=== PATIENT | female | born 2000 | race Caucasian/White ===

== ENCOUNTER 2022-09-05 10:20 | Emergency (ER) | payer OTHER ==
--- OUTSIDE RECORDS SUMMARY | 2022-09-05 10:23 | XMS REPORT | Continuity of Care Document ---
:2000 Author Organization [facility] t Address [address] [place] [address] Care Team Providers Name Role Phone ALBERT MANCIA Attending Clinician Unavailable LESLY PLATA Attending Clinician Unavailable Problems This patient has no known problems. Allergies, Adverse Reactions, Alerts This patient has no known allergies or adverse reactions. Medications This patient has no known medications. Procedures This patient has no known procedures. Encounters Start End Encounter Admission Attending Care Care Encounter Source Date/Time Date/Time Type Type Clinicians Facility Department ID 2022-05-31 2022-05-31 Emergency ER RODOLFO MANCIA [facility] [id number] 17:19:00 19:10:00 ALBERT [id number] [facility] 2022-05-31 2022-05-31 emergency [id number] 17:19:00 19:10:00 [id number] [phone] [id number] 5eb 2021-02-21 2021-02-21 Emergency ER , [facility] [id number] 19:04[facility]00 22:21:00 [id number] Results This patient has no known results.
[2022-09-05 11:31] LABS: SARS-COV-2 RT PCR NEGATIVE (NEGATIVE)
--- NOTE | 2022-09-05 11:53 | EDPHYS ---
Physician Documentation [facility] Name: Mandy Patel Age: 22 yrs Sex: Female : 2000 Arrival Date: 09/05/2022 Time: 10:21 Bed 9 Private MD: ED Physician Jamal Xiong HPI: 09/05 10:34 This 22 yrs old Female presents to ER via Ambulatory with complaints of Cold Symptoms, jmm Flu Symptoms. 10:34 The patient or guardian reports cough. Onset: The symptoms/episode began/occurred jmm gradually, 4 day(s) ago. Modifying factors: The symptoms are alleviated by nothing. the symptoms are aggravated by nothing. Is a 22-year-old female with no chronic medical conditions and presents emerged department with complaints of cough, sore throat beginning approximately 4 days ago. Denies vomiting but states having some nausea. Denies diarrhea. Denies abdominal pain.. Historical: - Allergies: 10:30 PENICILLINS; aa5 - PMHx: 10:30 None; aa5 - PSHx: 10:30 None; aa5 - Immunization history:: Adult Immunizations unknown. - Social history:: Smoking status: Reported history of juuling and/or vaping. ROS: 10:34 Constitutional: Positive for body aches, chills. jmm 10:34 ENT: Positive for sore throat. 10:34 Respiratory: Positive for cough. 10:34 All other systems are negative. Exam: 10:34 Constitutional: This is a well developed, well nourished patient who is awake, alert, jmm and in no acute distress. Head/Face: atraumatic. Eyes: EOMI, no conjunctival erythema appreciated 10:34 Neck: Trachea midline, Supple Chest/axilla: Normal chest wall appearance and motion. Cardiovascular: Regular rate and rhythm. No edema appreciated Respiratory: Normal respirations, no respiratory distress appreciated Abdomen/GI: Non distended Back: Normal ROM Skin: General appearance color normal MS/ Extremity: Moves all extremities, no obvious deformities appreciated, no edema noted to the lower extremities Neuro: Awake and alert Psych: Behavior is normal, Mood is normal, Patient is cooperative and pleasant 10:34 ENT: Posterior pharynx: erythema, that is moderate. Vital Signs: 10:27 BP 143 / 99; Pulse 99; Resp 18 S; Temp 97.5(TE); Pulse Ox 100% on R/A; Weight 63.5 kg aa5 (R); MDM: 10:34 Patient medically screened. [facility] 11:51 Data reviewed: vital signs, nurses notes, lab test result(s). Counseling: I had a jmm detailed discussion with the patient and/or guardian regarding: the historical points, exam findings, and any diagnostic results supporting the discharge/admit diagnosis, lab results, the need for outpatient follow up, to return to the emergency department if symptoms worsen or persist or if there are any questions or concerns that arise at home. ED course: Patient is alert nontoxic in appearance in the ED. Patient advised follow-up PCP otherwise given strict return precautions. Patient understood agrees plan of care. 09/05 10:34 Order name: COVID-19/FLU A+B; Complete Time: 11:36 [facility] 09/05 10:34 Order name: Strep; Complete Time: 11:20 [facility] 09/05 11:24 Order name: Throat Culture EDMS Administered Medications: No medications were administered Disposition: 13:32 I reviewed the patient's care provided by the Advanced Practice Provider and agree with jrYovany the diagnosis and treatment plan. Disposition Summary: 09/05/22 11:52 Discharge Ordered Location: Home [facility] Condition: Stable [facility] Diagnosis - Acute pharyngitis, unspecified [facility] Followup: [facility] - With: Private Physician - When: 2 - 3 days - Reason: Recheck today's complaints, Continuance of care, Re-evaluation by your physician Discharge Instructions: - Discharge Summary Sheet [facility] - Pharyngitis [facility] Forms: - Medication Reconciliation Form [facility] - Thank You Letter [facility] - Antibiotic Education [facility] - Prescription Opioid Use [facility] - Work release form iw Prescriptions: - promethazine-DM - take 10 milliliter by ORAL route every 4-6 hours As needed; 200 milliliter; [facility] Refills: 0, Product Selection Permitted - Zithromax Z-Jeremy 250 mg Oral Tablet - take 1 tablet by ORAL route as directed for 5 days Day 1 - take two (2) tablets [facility] one time. Day 2, 3, 4 , 5 take one (1) tablet once daily.; 6 tablet; Refills: 0, Product Selection Permitted Signatures: Dispatcher [employer] EDMS Bird Anthony PA PA jmm Calderon, Beverly, RN RN aa5 Jamal Xiong MD MD [id number] Corrections: (The following items were deleted from the chart) 10:30 10:30 Allergies: No Known Allergies; aa5 aa5
--- NOTE | 2022-09-05 11:53 | ER ---
Nurse's Notes [facility] Name: Mandy Patel Age: 22 yrs Sex: Female : 2000 Arrival Date: 09/05/2022 Time: 10:21 Bed 9 Private MD: Diagnosis: Acute pharyngitis, unspecified Presentation: 09/05 10:27 Chief complaint: Patient states: cough and congestion since Friday. Denies fever, aa5 reports sore throat. Coronavirus screen: congestion, cough unrelated to allergies. Ebola Screen: Patient denies travel to an Ebola-affected area in the 21 days before illness onset. Initial Sepsis Screen: Does the patient meet any 2 criteria? No. Patient's initial sepsis screen is negative. Does the patient have a suspected source of infection? No. Patient's initial sepsis screen is negative. Risk Assessment: Do you want to hurt yourself or someone else? Patient reports no desire to harm self or others. Onset of symptoms was August 2022. 10:27 Acuity: CINDY 4 aa5 10:27 Method Of Arrival: Ambulatory aa5 Historical: - Allergies: 10:30 PENICILLINS; aa5 - PMHx: 10:30 None; aa5 - PSHx: 10:30 None; aa5 - Immunization history:: Adult Immunizations unknown. - Social history:: Smoking status: Reported history of juuling and/or vaping. Vital Signs: 10:27 BP 143 / 99; Pulse 99; Resp 18 S; Temp 97.5(TE); Pulse Ox 100% on R/A; Weight 63.5 kg aa5 (R); ED Course: 10:21 Patient arrived in ED. am2 10:22 Bird Anthony PA is PHCP. [facility] 10:22 Jamal Xiong MD is Attending Physician. jm 10:27 Arm band placed on. aa5 10:29 Triage completed. aa5 12:05 Linda Winslow, GINNY is Primary Nurse. iw Administered Medications: No medications were administered Outcome: 11:52 Discharge ordered by . jmm 12:07 Patient left the ED. iw Signatures: Bird Anthony PA PA jmm Williams, Irene, RN RN iw Beverly Nye RN RN aa5 Carmelita Funez am2 Corrections: (The following items were deleted from the chart) 10:30 10:27 BP 143 / 99; Pulse 99bpm; Resp 18bpm; Spontaneous; Pulse Ox 100% RA; Temp 97.5F aa5 Temporal; aa5 10:30 10:30 Allergies: No Known Allergies; aa5 aa5
[2022-09-05 12:27] VITALS: BP 143/99; TEMP 97.5; O2SAT 100
== END 2022-09-05 12:07 | disposition home or self-care (01) ==
LOC: ER 10:20
DX: J02.9 Acute pharyngitis, unspecified (principal); Z20.822 Contact with and (suspected) exposure to COVID-19; Z88.0 Allergy status to penicillin
CPT/HCPCS: 87070; 87081; 0240U; 99281

== ENCOUNTER 2022-10-04 17:03 | Emergency (ER) | payer OTHER ==
--- OUTSIDE RECORDS SUMMARY | 2022-10-04 17:07 | XMS REPORT | Continuity of Care Document ---
:2000 Author Organization [facility] t Address [address] [place] [address] Care Team Providers Name Role Phone ALBERT [...] ID 2022-05-31 2022-05-31 Emergency ER RODOLFO MANCIA [facility] [id number] 17:19:00 19:10:00 ALBERT [id number] [facility] 2022-05-31 2022-05-31 emergency [id number] 17:19:00 19:10:00 [phone] [id number] 5eb 2021-02-21 2021-02-21 Emergency ER , [facility] [id number] 19:04:00 22:21:00 [id number] [facility] Results This patient has no known results.
--- NOTE | 2022-10-04 20:47 | RAD REPORT ---
EXAM DESCRIPTION: US - Extremity Nonvascular Limited - 10/04/2022 8:37 pm CLINICAL HISTORY: Right chest wall pain COMPARISON: None FINDINGS: Sonographic evaluation of the upper lateral right chest wall does not demonstrate a cystic or solid mass. An abscess is not visualized IMPRESSION: Unremarkable ultrasound. If a worrisome mass is suspected clinically then further evalua tion with MRI could be obtained
--- NOTE | 2022-10-04 21:35 | EDPHYS ---
Physician Documentation [facility] Name: Mandy Patel Age: 22 yrs Sex: Female : 2000 Arrival Date: 10/04/2022 Time: 17:06 Bed 19 Private MD: ED Physician Babatunde Cary HPI: 10/04 19:57 This 22 yrs old Female presents to ER via Ambulatory with complaints of Under arm pain. kb 20:00 The patient or guardian reports chest pain that is located primarily in the anterior kb chest wall, right. The pain does not radiate. Associated signs and symptoms: The patient has no apparent associated signs or symptoms. The chest pain is described as sharp. Duration: The patient or guardian reports a single episode. Modifying factors: The symptoms are alleviated by nothing. the symptoms are aggravated by movement, palpation of area. Severity of pain: At its worst the pain was moderate in the emergency department the pain is unchanged. The patient has not experienced similar symptoms in the past. The patient has not recently seen a physician. Historical: - Allergies: 17:14 PENICILLINS; hb - Home Meds: 17:14 None [Active]; hb - PMHx: 17:14 None; hb - PSHx: 17:14 None; hb - Immunization history:: Adult Immunizations up to date. - Social history:: Smoking status: Reported history of juuling and/or vaping. ROS: 19:57 Constitutional: Negative for fever, chills, and weight loss. kb 19:57 Cardiovascular: Positive for chest pain, of the anterior aspect of right upper chest. 19:57 All other systems are negative. Exam: 19:57 Constitutional: This is a well developed, well nourished patient who is awake, alert, kb and in no acute distress. Head/Face: Normocephalic, atraumatic. ENT: Moist Mucous membranes Cardiovascular: Regular rate and rhythm with a normal S1 and S2. No gallops, murmurs, or rubs. No pulse deficits. Respiratory: Respirations even and unlabored. No increased work of breathing. Talking in full sentences Abdomen/GI: Soft, non-tender. No distention Skin: Warm, dry with normal turgor. Normal color. MS/ Extremity: Pulses equal, no cyanosis. Neurovascular intact. Full, normal range of motion. Neuro: Awake and alert, GCS 15, oriented to person, place, time, and situation. Moves all extremities. Normal gait. 19:57 Chest/axilla: Inspection: normal, Palpation: tenderness, that is moderate, of the anterior aspect of right upper chest, that totally reproduces the patient's complaints, Axilla: are normal. Vital Signs: 17:13 BP 137 / 89; Pulse 77; Resp 18; Temp 98.1; Pulse Ox 100% ; Weight 68.49 kg; Height 5 hb ft. 4 in. (162.56 cm); Pain 1/10; 19:17 BP 125 / 94; Pulse 88; Resp 18; Pulse Ox 100% ; mb9 20:39 BP 120 / 76; Pulse 85; Resp 16; Pulse Ox 99% on R/A; mb9 21:40 BP 121 / 82; Pulse 76; Resp 14; Pulse Ox 100% ; mb9 17:13 Body Mass Index 25.92 (68.49 kg, 162.56 cm) hb MDM: 17:08 Patient medically screened. kb 19:57 Differential diagnosis: Strain, abscess, contusion. Data reviewed: vital signs, nurses kb notes. Transition of care: After a detail discussion of the patient's case, care is transferred to Babatunde ELENA. ED course: Patient is a 22-year-old female with no medical history who presents for pain and tenderness to right upper and lateral that started yesterday. Chest denies any injury or trauma. Reports pain increases with movement and palpation. On exam moderate tenderness noted to right upper chest wall that is totally reproducible. No discoloration or warmth noted to skin. Will obtain ultrasound to rule out abscess. Case discussed with KASSY Lopez who will take over care of patient.. 10/04 19:16 Order name: US [place] Shannandelfino Limited; Complete Time: 21:03 kb 10/04 21:03 Interpretation: Report reviewed. cp Administered Medications: No medications were administered Disposition Summary: 10/04/22 21:35 Discharge Ordered Location: Home cp Problem: new cp Symptoms: have improved cp Condition: Stable cp Diagnosis - Chest pain, unspecified - right lateral chest wall cp Followup: cp - With: Private Physician - When: 2 - 3 days - Reason: Recheck today's complaints Discharge Instructions: - Discharge Summary Sheet cp - Chest Wall Pain cp Forms: - Medication Reconciliation Form cp - Thank You Letter cp - Antibiotic Education cp - Prescription Opioid Use cp Prescriptions: - Ibuprofen 800 mg Oral Tablet - take 1 tablet by ORAL route every 8 hours As needed take with food; 30 tablet; cp Refills: 0, Product Selection Permitted Signatures: Dispatcher [employer] Caitie Tenorio FNP-C FNP-Ckb Page, Corey, PA PA cp Janet Miller, RN RN
--- NOTE | 2022-10-04 21:35 | ER ---
Nurse's Notes [facility] Name: Mandy Patel Age: 22 yrs Sex: Female : 2000 Arrival Date: 10/04/2022 Time: 17:06 Bed 19 Private MD: Diagnosis: Chest pain, unspecified-right lateral chest wall Presentation: 10/04 17:13 Chief complaint: Right sided chest wall pain x 2 days. Coronavirus screen: At this hb time, the client does not indicate any symptoms associated with coronavirus-19. Ebola Screen: No symptoms or risks identified at this time. Initial Sepsis Screen: Does the patient meet any 2 criteria? No. Patient's initial sepsis screen is negative. Does the patient have a suspected source of infection? No. Patient's initial sepsis screen is negative. Risk Assessment: Do you want to hurt yourself or someone else? Patient reports no desire to harm self or others. Onset of symptoms was October 03, 2022. 17:13 Method Of Arrival: Ambulatory hb 17:13 Acuity: CINDY 4 hb Historical: - Allergies: 17:14 PENICILLINS; hb - Home Meds: 17:14 None [Active]; hb - PMHx: 17:14 None; hb - PSHx: 17:14 None; hb - Immunization history:: Adult Immunizations up to date. - Social history:: Smoking status: Reported history of juuling and/or vaping. Screenin:11 [facility] ED Fall Risk Assessment (Adult) History of falling in the last 3 months, mb9 including since admission No falls in past 3 months (0 pts) Confusion or Disorientation No (0 pts) Intoxicated or Sedated No (0 pts) Impaired Gait No (0 pts) Mobility Assist Device Used No (0 pt) Altered Elimination No (0 pt) Score/Fall Risk Level 0 - 2 = Low Risk Oriented to surroundings, Maintained a safe environment, Educated pt \T\ family on fall prevention, incl call for assistance when getting out of bed. Abuse screen: Denies threats or abuse. Nutritional screening: No deficits noted. Tuberculosis screening: No symptoms or risk factors identified. Assessment: 19:11 Reassessment: pt brought back to ER room. mb9 19:16 General: Appears in no apparent distress. Behavior is calm, cooperative, appropriate mb9 for age. Pain: Complains of pain in right arm Pain does not radiate. Pain currently is 5 out of 10 on a pain scale. Quality of pain is described as sharp, shooting, Pain began 1 day ago. Is intermittent, Aggravated by repositioning, weight bearing. Neuro: Ackerman Agitation-Sedation Scale (RASS): 0 - Alert and Calm Level of Consciousness is awake, alert, obeys commands, Oriented to person, place, time, situation, Appropriate for age. Cardiovascular: Capillary refill < 3 seconds is brisk Patient's skin is warm and dry. Respiratory: Airway is patent Respiratory effort is even, unlabored, Respiratory pattern is regular, symmetrical. GI: No signs and/or symptoms were reported involving the gastrointestinal system. : No signs and/or symptoms were reported regarding the genitourinary system. EENT: No signs and/or symptoms were reported regarding the EENT system. Derm: Skin is pink, warm \T\ dry. Musculoskeletal: Range of motion: limited in right shoulder. 21:09 Reassessment: No changes from previously documented assessment. Patient and/or family mb9 updated on plan of care and expected duration. Pain level reassessed. Patient is alert, oriented x 3, equal unlabored respirations, skin warm/dry/pink. Vital Signs: 17:13 BP 137 / 89; Pulse 77; Resp 18; Temp 98.1; Pulse Ox 100% ; Weight 68.49 kg; Height 5 hb ft. 4 in. (162.56 cm); Pain 1/10; 19:17 BP 125 / 94; Pulse 88; Resp 18; Pulse Ox 100% ; mb9 20:39 BP 120 / 76; Pulse 85; Resp 16; Pulse Ox 99% on R/A; mb9 21:40 BP 121 / 82; Pulse 76; Resp 14; Pulse Ox 100% ; mb9 17:13 Body Mass Index 25.92 (68.49 kg, 162.56 cm) hb ED Course: 17:06 Patient arrived in ED. mr 17:08 Caitie Boyle FNP-C is [facility]. kb 17:08 Babatunde Cary MD is Attending Physician. kb 17:14 Triage completed. hb 17:15 Arm band placed on. hb 19:11 Scarlett Gracia RN is Primary Nurse. mb9 19:12 Bed in low position. Call light in reach. Side rails up X 1. Client placed on mb9 continuous cardiac and pulse oximetry monitoring. NIBP monitoring applied. 19:16 No provider procedures requiring assistance completed. mb9 19:50 PHCP role handed off by Caitie Boyle FNP-C cp 19:50 Babatunde Krause PA is PHCP. cp 20:45 Extrmty Nonvasular Limited In Process Unspecified. EDMS 21:41 Patient did not have IV access during this emergency room visit. mb9 Administered Medications: No medications were administered Medication: 19:12 VIS not applicable for this client. mb9 Outcome: 21:35 Discharge ordered by MD. cp 21:40 Discharged to home ambulatory. mb9 21:40 Condition: stable 21:40 Discharge instructions given to patient, Instructed on discharge instructions, follow up and referral plans. Demonstrated understanding of instructions, follow-up care, medications, Prescriptions given X 1. 21:41 Patient left the ED. mb9 Signatures: Dispatcher [employer] EDAK Caitie Boyle FNP-C FNP-Scarlett Lemus Corey, PA PA cp Baxter, Heather, RN RN Scarlett Gracia, RN RN mb9
[2022-10-04 22:21] VITALS: TEMP 98.1
[2022-10-04 22:24] VITALS: BP 121/82; O2SAT 100
== END 2022-10-04 21:41 | disposition home or self-care (01) ==
LOC: ER 17:03
DX: R07.89 Other chest pain (principal); Z88.0 Allergy status to penicillin
CPT/HCPCS: 76882; 99283

== ENCOUNTER 2023-03-24 20:46 | Emergency (ER) | payer OTHER ==
--- OUTSIDE RECORDS SUMMARY | 2023-03-24 20:49 | XMS REPORT | Continuity of Care Document ---
:2000 Author Organization [facility] t Address [address] [facility] [address] [place] [address] Support Name Relationship Address Phone OTHER, ENTER NAME IN Primary Care Physician Unavailable Unav ailable NOTES MD LESLY PLATA Emergency Provider [facility] [place] [address] СВЕТЛАНА CURRY Unavailable [id number] [facility] [place] [address] MD ALBERT MANCIA Emergency Provider [address] [place] [address] [phone] [place] [address] CHRISTOPHER CRUZ Family Member [id number] [place] [address] GIORGI SEN Family Member [id number] [place] [address] Care Team Providers Name Role Phone ALBERT [...] ID 2022-05-31 2022-05-31 Emergency ER RODOLFO MANCIA [facility] [id number] 17:19:00 19:10:00 ALBERT [id number] [facility] 2022-05-31 2022-05-31 emergency [id number] 17:19:00 19:10:00 [phone] [id number] 5eb 2021-02-21 2021-02-21 Emergency ER , [facility] [id number] 19:04:00 22:21:00 [id number] [facility] Results This patient has no known results.
--- NOTE | 2023-03-24 22:08 | RAD REPORT ---
EXAM DESCRIPTION: RAD - Chest Single View - 03/24/2023 10:01 pm CLINICAL HISTORY: Chest pain;Dyspnea Chest pain. COMPARISON: <Comparisons> FINDINGS: Portable technique limits examination quality. The lungs are grossly clear. The heart is normal in size. No displaced fractures. IMPRESSION: No acute intrathoracic process suspected.
--- NOTE | 2023-03-24 22:19 | EDPHYS ---
Physician Documentation [facility] Name: Mandy Patel Age: 22 yrs Sex: Female : 2000 Arrival Date: 03/24/2023 Time: 20:46 Bed 11 Private MD: ED Physician Rick Rush HPI: 03/25 00:08 This 22 yrs old Female presents to ER via Ambulatory with complaints of Chest kb Congestion, Shortness Of Breath. 00:08 The patient or guardian reports cough, that is intermittent, described as mild, kb difficulty breathing. Onset: The symptoms/episode began/occurred yesterday. Severity of symptoms: At their worst the symptoms were mild, moderate, in the emergency department the symptoms are unchanged. Modifying factors: The symptoms are alleviated by nothing, the symptoms are aggravated by nothing. Associated signs and symptoms: Pertinent positives: rhinorrhea, Pertinent negatives: chest pain, diarrhea, ear ache, fever, nausea, sore throat, vomiting. The patient has not experienced similar symptoms in the past. The patient has not recently seen a physician. R&D LAB TECHNICIAN: 03/24 21:59 LMP N/A - mb9 Historical: - Allergies: 22:25 PENICILLINS; mb9 - Home Meds: 22:25 None [Active]; mb9 - PMHx: 22:25 None; mb9 - PSHx: 22:25 None; mb9 - Immunization history:: Client reports receiving the 2nd dose of the Covid vaccine. - Social history:: Smoking status: Reported history of juuling and/or vaping. ROS: 03/25 00:07 Constitutional: Negative for fever, chills, and weight loss. kb ENT: Positive for rhinorrhea, sinus congestion. Respiratory: Positive for cough, shortness of breath. All other systems are negative. Exam: 00:07 Constitutional: This is a well developed, well nourished patient who is awake, alert, kb and in no acute distress. Head/Face: Normocephalic, atraumatic. ENT: Moist Mucous membranes Cardiovascular: Regular rate and rhythm with a normal S1 and S2. No gallops, murmurs, or rubs. No pulse deficits. Respiratory: Respirations even and unlabored. No increased work of breathing. Talking in full sentences Skin: Warm, dry with normal turgor. Normal color. MS/ Extremity: Pulses equal, no cyanosis. Neurovascular intact. Full, normal range of motion. Neuro: Awake and alert, GCS 15, oriented to person, place, time, and situation. Moves all extremities. Normal gait. Vital Signs: 03/24 21:25 BP 135 / 96; Pulse 87; Resp 24; Temp 98.6; Pulse Ox 100% ; Weight 68.04 kg; Height 5 vc1 ft. 4 in. ; Pain 3/10; 22:24 BP 118 / 75; Pulse 74; Resp 18; Pulse Ox 100% on R/A; mb9 21:25 Body Mass Index 25.75 (68.04 kg, 162.56 cm) vc1 21:25 Pain Scale: Adult vc1 MDM: 21:03 Patient medically screened. kb 03/25 00:07 Differential diagnosis: COVID, flu, URI, bronchitis, pneumonia. Data reviewed: vital kb signs, nurses notes. Counseling: I had a detailed discussion with the patient and/or guardian regarding: the historical points, exam findings, and any diagnostic results supporting the discharge/admit diagnosis, lab results, radiology results, the need for outpatient follow up, a family practitioner, to return to the emergency department if symptoms worsen or persist or if there are any questions or concerns that arise at home. 03/24 21:23 Order name: Flu; Complete Time: 22:03 kb 03/24 21:23 Order name: SARS-COV-2 RT PCR; Complete Time: 22:17 kb 03/24 21:23 Order name: Chest Single View XRAY; Complete Time: 22:10 kb Administered Medications: No medications were administered Disposition: 00:43 Co-signature as Attending Physician, Rick Rush MD I agree with the assessment sp4 and plan of care. I reviewed the patient's care provided by the Advanced Practice Provider and agree with the diagnosis and treatment plan. Disposition Summary: 03/24/23 22:18 Discharge Ordered Location: Home kb Condition: Stable kb Diagnosis - Acute upper respiratory infection, unspecified kb Followup: kb - With: Emergency Department - When: As needed - Reason: Worsening of condition Followup: kb - With: Private Physician - When: 2 - 3 days - Reason: Recheck today's complaints, Continuance of care, Re-evaluation by your physician Discharge Instructions: - Discharge Summary Sheet kb - Upper Respiratory Infection, Adult, [id number] kb - Viral Respiratory Infection, [id number] kb Forms: - Medication Reconciliation Form kb - Thank You Letter kb - Antibiotic Education kb - Prescription Opioid Use kb - Patient Portal Instructions kb - Leadership Thank You Letter kb Signatures: Dispatcher [employer] Caitie Tenorio, DIRECTOR OF PAYROLL-C MAX-Alie Lozoya RN RN vc1 Scarlett Gracia RN RN mb9 Rick Rush MD MD sp4 Corrections: (The following items were deleted from the chart) 03/24 22:25 22:25 Home Meds: Unable to obtain; marcelo mb9
--- NOTE | 2023-03-24 22:19 | ER ---
Nurse's Notes [facility] Name: Mandy Patel Age: 22 yrs Sex: Female : 2000 Arrival Date: 03/24/2023 Time: 20:46 Bed 11 Private MD: Diagnosis: Acute upper respiratory infection, unspecified Presentation: 03/24 21:25 Chief complaint: Patient states: I'm short of breath since yesterday, congested and vc1 light headed. It feels like when I had covid. Coronavirus screen: Vaccine status: Patient reports receiving the 2nd dose of the covid vaccine. [employer] Client denies travel out of the [place] in the last 14 days. congestion, shortness of breath, Client presents with at least one sign or symptom that may indicate coronavirus-19. Ebola Screen: Patient negative for fever greater than or equal to 101.5 degrees Fahrenheit, and additional compatible Ebola Virus Disease symptoms Patient denies exposure to infectious person. Patient denies travel to an Ebola-affected area in the 21 days before illness onset. No symptoms or risks identified at this time. 21:25 Method Of Arrival: Ambulatory vc1 21:25 Initial Sepsis Screen: Does the patient meet any 2 criteria? No. Patient's initial vc1 sepsis screen is negative. Does the patient have a suspected source of infection? No. Patient's initial sepsis screen is negative. Risk Assessment: Do you want to hurt yourself or someone else? Patient reports no desire to harm self or others. Onset of symptoms was March 23, 2023. 21:25 Acuity: CINDY 3 vc1 Triage Assessment: 21:25 General: Appears uncomfortable, Behavior is anxious. Pain: Complains of pain in vc1 anterior aspect of left upper chest Pain does not radiate. Pain currently is 3 out of 10 on a pain scale. Quality of pain is described as sharp, Noted to be Hyperventilation. EENT: No deficits noted. No signs and/or symptoms were reported regarding the EENT system. Neuro: Level of Consciousness is awake, alert, obeys commands, Oriented to person, place, time, situation, Appropriate for age. Cardiovascular: No deficits noted. Respiratory: Airway is patent Respiratory effort is even, unlabored, Respiratory pattern is regular, hyperventilation the patient has mild shortness of breath. Respiratory: Reports shortness of breath at rest. Respiratory: Breath sounds are clear. GI: No deficits noted. No signs and/or symptoms were reported involving the gastrointestinal system. : No deficits noted. No signs and/or symptoms were reported regarding the genitourinary system. Derm: No deficits noted. No signs and/or symptoms reported regarding the dermatologic system. Musculoskeletal: No deficits noted. No signs and/or symptoms reported regarding the musculoskeletal system. 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 - Social history:: Smoking status: Reported history of juuling and/or vaping. Screenin:35 [facility] ED Fall Risk Assessment (Adult) History of falling in the last 3 months, 9 including since admission No falls in past 3 months (0 pts) Confusion or Disorientation No (0 pts) Intoxicated or Sedated No (0 pts) Impaired Gait No (0 pts) Mobility Assist Device Used No (0 pt) Altered Elimination No (0 pt) Score/Fall Risk Level 0 - 2 = Low Risk Oriented to surroundings, Maintained a safe environment, Educated pt \T\ family on fall prevention, incl call for assistance when getting out of bed. Abuse screen: Denies threats or abuse. Nutritional screening: No deficits noted. Tuberculosis screening: No symptoms or risk factors identified. Assessment: 21:33 General: Appears uncomfortable, Behavior is anxious. Pain: Complains of pain in entire mb9 body and head Pain does not radiate. Quality of pain is described as aching, Pain began gradually, Is continuous. Neuro: Ackerman Agitation-Sedation Scale (RASS): 0 - Alert and Calm Level of Consciousness is awake, alert, obeys commands, Oriented to person, place, time, situation, Appropriate for age Reports headache. Cardiovascular: Patient's skin is warm and dry. Rhythm is regular. Respiratory: Reports shortness of breath cough that is Airway is patent Respiratory effort is even, unlabored, Respiratory pattern is regular, symmetrical, Breath sounds are clear bilaterally. GI: Patient currently denies diarrhea, nausea, vomiting. : No signs and/or symptoms were reported regarding the genitourinary system. Derm: Skin is pink, warm \T\ dry. Musculoskeletal: Range of motion: intact in all extremities. 22:24 Reassessment: No changes from previously documented assessment. Patient and/or family mb9 updated on plan of care and expected duration. Pain level reassessed. Patient is alert, oriented x 3, equal unlabored respirations, skin warm/dry/pink. Vital Signs: 21:25 BP 135 / 96; Pulse 87; Resp 24; Temp 98.6; Pulse Ox 100% ; Weight 68.04 kg; Height 5 vc1 ft. 4 in. ; Pain 3/10; 22:24 BP 118 / 75; Pulse 74; Resp 18; Pulse Ox 100% on R/A; mb9 21:25 Body Mass Index 25.75 (68.04 kg, 162.56 cm) vc1 21:25 Pain Scale: Adult vc1 ED Course: 20:47 Patient arrived in ED. kj1 20:50 [facility] Boy[facility]-C [facility] kb 20:50 Rick Rush MD is Attending Physician. kb 21:27 Scarlett Gracia, GINNY is Primary Nurse. mb9 21:33 Arm band placed on. mb9 21:34 Placed in gown. Bed in low position. Call light in reach. Side rails up X 1. Client mb9 placed on continuous cardiac and pulse oximetry monitoring. NIBP monitoring applied. 21:34 No provider procedures requiring assistance completed. Patient did not have IV access mb9 during this emergency room visit. 22:03 Chest Single View XRAY In Process Unspecified. EDMS 22:30 Triage completed. vc1 Administered Medications: No medications were administered Medication: 21:33 VIS not applicable for this client. mb9 Outcome: 22:18 Discharge ordered by . kb 22:25 Discharged to home ambulatory. mb9 22:25 Condition: good 22:25 Discharge instructions given to patient, Instructed on discharge instructions, follow up and referral plans. Demonstrated understanding of instructions, follow-up care. 22:25 Patient left the ED. mb9 Signatures: Dispatcher [employer] EDCA Caitie Boyle FNP-C FNP-Ckb Jackson, Kandis kj1 Alie Kohler RN RN vc1 Scarlett Gracia, RN RN mb9 Corrections: (The following items were deleted from the chart) 22:25 [place] Meds: Unable to obtain; mb9 mb9
[2023-03-24 23:29] VITALS: BP 118/75; O2SAT 100
== END 2023-03-24 22:25 | disposition home or self-care (01) ==
LOC: ER 20:46
DX: J06.9 Acute upper respiratory infection, unspecified (principal); Z20.822 Contact with and (suspected) exposure to COVID-19; Z88.0 Allergy status to penicillin
CPT/HCPCS: 71045; 87635; 87804; 99283

== ENCOUNTER 2023-04-02 21:53 | Emergency (ER) | payer OTHER ==
--- OUTSIDE RECORDS SUMMARY | 2023-04-02 21:56 | XMS REPORT | Continuity of Care Document ---
:2000 Author Organization [facility] t Address [address] [place] [address] Care Team Providers Name Role Phone ALBERT [...] ID 2022-05-31 2022-05-31 Emergency ER RODOLFO MANCIA [facility] [id number] [place] 17:19:00 19:10:00 ALBERT [id number] [facility] 2022-05-31 2022-05-31 emergency [id number] 17:19:00 19:10:00 [id number] [phone] [id number] [id number] 5eb 2021-02-21 2021-02-21 Emergency ER , [facility] [id number] [place] 19:04:00 22:21:00 [id number] [facility] Results This patient has no known results.
--- NOTE | 2023-04-03 00:16 | EDPHYS ---
Physician Documentation [facility] Name: Mandy Patel Age: 22 yrs Sex: Female : 2000 Arrival Date: 04/02/2023 Time: 21:53 Bed DIS4 Private MD: ED Physician Lee Wilson HPI: 04/02 23:56 This 22 yrs old Female presents to ER via Ambulatory with complaints of Ear Pain. kb 23:56 The patient presents with pain, moderate, tenderness. The complaints affect the right kb ear. Onset: The symptoms/episode began/occurred today. Modifying factors: The symptoms are alleviated by nothing, the symptoms are aggravated by nothing. Associated signs and symptoms: The patient has no apparent associated signs or symptoms. Severity of symptoms: At their worst the symptoms were moderate in the emergency department the symptoms are unchanged. The patient has not experienced similar symptoms in the past. The patient has not recently seen a physician. 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 - Social history:: Smoking status: Reported history of juuling and/or vaping. Patient uses alcohol, occasionally. Patient/guardian denies using street drugs. ROS: 23:55 Constitutional: Negative for fever, chills, and weight loss. kb 23:55 ENT: Positive for ear pain. 23:55 All other systems are negative. Exam: 23:55 Constitutional: This is a well developed, well nourished patient who is awake, alert, kb and in no acute distress. Head/Face: Normocephalic, atraumatic. Cardiovascular: Regular rate and rhythm with a normal S1 and S2. No gallops, murmurs, or rubs. No pulse deficits. Respiratory: Respirations even and unlabored. No increased work of breathing. Talking in full sentences Skin: Warm, dry with normal turgor. Normal color. MS/ Extremity: Pulses equal, no cyanosis. Neurovascular intact. Full, normal range of motion. Neuro: Awake and alert, GCS 15, oriented to person, place, time, and situation. Moves all extremities. Normal gait. 23:55 ENT: External ear(s): pain with movement, that is moderate, of the right ear lobe, right preauricular area and right mastoid area, Ear canal(s): are normal, TM's: are normal. Vital Signs: 22:29 BP 141 / 95; Pulse 79; Resp 19 S; Temp 98.7(O); Pulse Ox 100% on R/A; Weight 70.31 kg lg3 (R); Height 5 ft. 4 in. (R); 04/03 00:15 BP 131 / 88; Pulse 71; Resp 18 S; Pulse Ox 100% on R/A; lg3 04/02 22:29 Body Mass Index 26.61 (70.31 kg, 162.56 cm) lg3 MDM: 04/02 21:58 Patient medically screened. kb 23:56 Differential diagnosis: otitis media, otitis externa, ruptured TM, foreign body, kb mastoiditis. Data reviewed: vital signs, nurses notes. 04/03 00:15 Counseling: I had a detailed discussion with the patient and/or guardian regarding the kb historical points, exam findings, and any diagnostic results supporting the discharge/admit diagnosis, radiology results, the need for outpatient follow up, a family practitioner, to return to the emergency department if symptoms worsen or persist or if there are any questions or concerns that arise at home. 04/02 22:27 Order name: Maxillofacial Wo Con EDMS Administered Medications: 00:32 Drug: HYDROcodone-acetaminophen PO 5 mg-325 mg 1 tabs Route: PO; lg3 01:17 Follow up: Response: No adverse reaction; Marked relief of symptoms lg3 Disposition: 02:03 Co-signature as Attending Physician, Lee Wilson MD I reviewed the patient's care rn provided by the Advanced Practice Provider and agree with the diagnosis and treatment plan. Disposition Summary: 04/03/23 00:16 Discharge Ordered Location: Home kb Condition: Stable kb Diagnosis - Otalgia, right ear kb Followup: kb - With: Emergency Department - When: As needed - Reason: Worsening of condition Followup: kb - With: Private Physician - When: 2 - 3 days - Reason: Recheck today's complaints, Continuance of care, Re-evaluation by your physician Discharge Instructions: - Discharge Summary Sheet kb - Earache, Adult kb - Temporomandibular Joint Syndrome kb Forms: - Medication Reconciliation Form kb - Thank You Letter kb - Antibiotic Education kb - Prescription Opioid Use kb - Patient Portal Instructions kb - Leadership Thank You Letter kb Signatures: Dispatcher [employer] EDMS Caitie Boyle, CUSTOMER SUCCESS ADVOCATE-C CUSTOMER SUCCESS ADVOCATE-Ckb Lee Wilson MD MD rn Gibson, Lacie, RN RN lg3 Corrections: (The following items were deleted from the chart) 04/02 22:27 22:16 Maxillofacial W/Cont+CT.RAD.BRZ ordered. EDMS EDMS
--- NOTE | 2023-04-03 00:16 | ER ---
[facility] Name: Mandy Patel Age: 22 yrs Sex: Female : 2000 Arrival Date: 04/02/2023 Time: 21:53 Bed DIS4 Private MD: Diagnosis: Otalgia, right ear Presentation: 04/02 22:29 Chief complaint: Patient states: right ear and jaw pain after jaw popped while eating. lg3 Coronavirus screen: Client denies travel out of the [place] in the last 14 days. At this time, the client does not indicate any symptoms associated with coronavirus-19. Ebola Screen: No symptoms or risks identified at this time. Initial Sepsis Screen: Does the patient meet any 2 criteria? No. Patient's initial sepsis screen is negative. Does the patient have a suspected source of infection? No. Patient's initial sepsis screen is negative. Risk Assessment: Do you want to hurt yourself or someone else? Patient reports no desire to harm self or others. Onset of symptoms was April 02, 2023. 22:29 Method Of Arrival: Ambulatory lg3 22:29 Acuity: CINDY 4 lg3 Triage Assessment: 22:34 General: Appears in no apparent distress. uncomfortable, Behavior is calm, cooperative. lg3 Pain: Complains of pain in right ear and right mandible. EENT: Ear canal clear on right ear. Neuro: No deficits noted. Ackerman Agitation-Sedation Scale (RASS): 0 - Alert and Calm Level of Consciousness is awake, alert, obeys commands, Oriented to person, place, time, situation. Cardiovascular: No deficits noted. Denies chest pain, shortness of breath, Capillary refill < 3 seconds Clubbing of nail beds is absent JVD is absent Patient's skin is warm and dry. Respiratory: No deficits noted. Airway is patent Respiratory effort is even, unlabored, Respiratory pattern is regular, symmetrical. GI: No deficits noted. No signs and/or symptoms were reported involving the gastrointestinal system. : No deficits noted. No signs and/or symptoms were reported regarding the genitourinary system. Derm: No deficits noted. No signs and/or symptoms reported regarding the dermatologic system. Skin is intact, is healthy with good turgor, Skin is dry, Skin is normal, Skin temperature is warm. Musculoskeletal: Reports pain in right ear and right mandible. 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 - Social history:: Smoking status: Reported history of juuling and/or vaping. Patient uses alcohol, occasionally. Patient/guardian denies using street drugs. Screenin/24 00:15 [facility] ED Fall Risk Assessment (Adult) History of falling in the last 3 months, lg3 including since admission No falls in past 3 months (0 pts). Abuse screen: Denies threats or abuse. Denies injuries from another. Nutritional screening: No deficits noted. Tuberculosis screening: No symptoms or risk factors identified. Assessment: 04/02 22:50 General: see triage assessment. lg3 04/03 00:15 Reassessment: Patient appears in no apparent distress at this time. No changes from lg3 previously documented assessment. Patient and/or family updated on plan of care and expected duration. Pain level reassessed. Patient is alert, oriented x 3, equal unlabored respirations, skin warm/dry/pink. Vital Signs: 04/02 22:29 BP 141 / 95; Pulse 79; Resp 19 S; Temp 98.7(O); Pulse Ox 100% on R/A; Weight 70.31 kg lg3 (R); Height 5 ft. 4 in. (R); 04/03 00:15 BP 131 / 88; Pulse 71; Resp 18 S; Pulse Ox 100% on R/A; lg3 08 22:29 Body Mass Index 26.61 (70.31 kg, 162.56 cm) lg3 ED Course: 04/02 21:57 Patient arrived in ED. ag3 21:58 Caitie Boyle FNP-C is [facility]. kb 21:58 Lee Wilson MD is Attending Physician. kb 22:34 Triage completed. lg3 22:34 Arm band placed on right wrist. lg3 22:44 Maxillofacial Wo Con In Process Unspecified. EDMS 04/03 00:15 Patient has correct armband on for positive identification. Warm blanket given. lg3 00:15 No provider procedures requiring assistance completed. Patient did not have IV access lg3 during this emergency room visit. Patient maintains SpO2 saturation greater than 95% on room air. Administered Medications: 00:32 Drug: HYDROcodone-acetaminophen PO 5 mg-325 mg 1 tabs Route: PO; lg3 01:17 Follow up: Response: No adverse reaction; Marked relief of symptoms lg3 Medication: 00:32 VIS not applicable for this client. lg3 Outcome: 00:16 Discharge ordered by . jose david 00:20 Discharged to home ambulatory, with significant other. lg3 00:20 Condition: stable 00:20 Discharge instructions given to patient, Instructed on discharge instructions, follow up and referral plans. Demonstrated understanding of instructions, follow-up care. 01:17 Patient left the ED. lg3 Signatures: Dispatcher [employer] EDMD Caitie Boyle, CIRILOC ELDERLY CAREGIVER-Anayeli Garcia ag3 Le Brewster, RN RN lg3
[2023-04-03] MEDS ORDERED: HYDROCODONE/APAP 5/325 MG TAB ONE (00:27)
[2023-04-03 02:25] VITALS: TEMP 98.7; O2SAT 100
[2023-04-03 02:27] VITALS: BP 131/88
--- NOTE | 2023-04-03 10:02 | RAD REPORT ---
EXAM DESCRIPTION: CT Maxillofacial Without Intravenous Contrast CLINICAL HISTORY: The patient is 22 years old and is Female; r/o mastoiditis, eval tmj TECHNIQUE: Axial computed tomography images of the face without intravenous contrast. Sagittal and coronal reformatted images were created and reviewed. This CT exam was performed using one or more of the following dose reduction techniques: automated exposure control, adjustment of the mA and/o r kV according to patient size, and/or use of iterative reconstruction technique. Report is based on review of 334 images provided at the time of interpretation. COMPARISON: No relevant prior studies available. FINDINGS: BONES/JOINTS: The orbital floors and rodrigues are intact. The zygomatic arches and pteryg oid plates are intact. The maxilla and mandible are intact. SOFT TISSUES: Unremarkable. ORBITS: The globes, extraocular muscles, and optic nerve complexes are within normal limits. SINUSES: The paranasal sinuses are clear. No air-fluid levels. MASTOID AIR CELLS: The mastoid air cells are clear. NASAL CAVITY/SEPTUM: The nasal bones are intact. IMPRESSION: No acute findings on this noncontrasted CT of the face to explain the patient's symptoms . Electronically signed by: Damaris Ernandez MD 04/03/2023 12:02 AM CDT Due to temporary technical issues with the PACS/Fluency reporting system, reports are being signed by the in house radiologist without review as a courtesy to ensure prompt reporting. The interpreting r adiologist is fully responsible for the content of the report.
== END 2023-04-03 01:17 | disposition home or self-care (01) ==
LOC: ER 21:53
DX: H92.01 Otalgia, right ear (principal); Z88.0 Allergy status to penicillin
CPT/HCPCS: 70486; 99284

== ENCOUNTER 2023-06-25 19:03 | Emergency (ER) | payer OTHER ==
--- OUTSIDE RECORDS SUMMARY | 2023-06-25 19:07 | XMS REPORT | Continuity of Care Document ---
:2000 Author Organization [facility] t Address [address] [place] [address] Care Team Providers Name Role Phone ALBERT [...] ID 2022-05-31 2022-05-31 Emergency ER RODOLFO MANCIA [facility] [id number] [place] 17:19:00 19:10:00 ALBERT [id number] [facility] 2022-05-31 2022-05-31 emergency [id number] 17:19:00 19:10:00 [id number] [id number] [id number] 5eb 2021-02-21 2021-02-21 Emergency ER , [facility] [id number] [place] 19:04:00 22:21:00 [id number] [facility] Results This patient has no known results.
[2023-06-25 19:39] LABS: Specific Gravity 1.006 (1.005-1.030); Urine Bacteria <20 /HPF (<20); Urine Bilirubin NEGATIVE (Negative); Urine Blood Negative (Negative); Urine Clarity Extremely Turbid (Clear); Urine Color Colorless (Yellow); Urine Glucose NEGATIVE (Negative); Urine Mucus Slight /HPF (None Seen); Urine Protein NEGATIVE (Negative); Urine RBC <5 /HPF (None Seen); Urine Urobilinogen Normal (Normal)
[2023-06-25 20:18] LABS: Specific Gravity 1.006 (1.005-1.030)
--- NOTE | 2023-06-25 20:24 | ER ---
Nurse's Notes [facility] Name: Mandy Patel Age: 22 yrs Sex: Female : 2000 Arrival Date: 06/25/2023 Time: 19:03 Bed IW1 Private MD: Diagnosis: Nasal congestion;Other specified related conditions, first trimester Presentation: 06/25 19:16 Chief complaint: Patient states: "I just found out I'm and feel like I have a mb9 UTI. I have a little bit of burning with urination. I have cramping that started today and nasal congestion.". Coronavirus screen: Vaccine status: Patient reports receiving the 2nd dose of the covid vaccine. Ebola Screen: No symptoms or risks identified at this time. Initial Sepsis Screen: Does the patient meet any 2 criteria? No. Patient's initial sepsis screen is negative. Does the patient have a suspected source of infection? No. Patient's initial sepsis screen is negative. Risk Assessment: Do you want to hurt yourself or someone else? Patient reports no desire to harm self or others. Onset of symptoms was June 25, 2023. 19:16 Method Of Arrival: Ambulatory mb9 19:16 Acuity: CINDY 3 mb9 Triage Assessment: 19:18 General: Appears in no apparent distress. Behavior is calm, cooperative, appropriate mb9 for age. 19:19 Pain: Denies pain. EENT: Reports nasal congestion. Neuro: Ackerman Agitation-Sedation mb9 Scale (RASS): 0 - Alert and Calm Level of Consciousness is awake, alert, obeys commands, Oriented to person, place, time, situation, Appropriate for age. Cardiovascular: Patient's skin is warm and dry. Respiratory: Airway is patent Respiratory effort is even, unlabored, Respiratory pattern is regular, symmetrical. GI: No signs and/or symptoms were reported involving the gastrointestinal system. : Reports burning with urination. Derm: Skin is pink, warm \\T\\ dry. Musculoskeletal: Range of motion: intact in all extremities. Historical: - Allergies: 19:18 PENICILLINS; mb9 - Home Meds: 19:18 None [Active]; mb9 - PMHx: 19:18 UTI; mb9 - PSHx: 19:18 None; mb9 - Immunization history:: Adult Immunizations up to date. - Social history:: Smoking status: Patient denies any tobacco usage or history of. Screenin:21 [facility] ED Fall Risk Assessment (Adult) History of falling in the last 3 months, mb9 including since admission No falls in past 3 months (0 pts) Confusion or Disorientation No (0 pts) Intoxicated or Sedated No (0 pts) Impaired Gait No (0 pts) Mobility Assist Device Used No (0 pt) Altered Elimination No (0 pt) Score/Fall Risk Level 0 - 2 = Low Risk Oriented to surroundings, Maintained a safe environment, Educated pt \\T\\ family on fall prevention, incl call for assistance when getting out of bed. Abuse screen: Denies threats or abuse. Nutritional screening: No deficits noted. Tuberculosis screening: No symptoms or risk factors identified. Assessment: 21:20 Reassessment: No changes from previously documented assessment. Patient and/or family mb9 updated on plan of care and expected duration. Pain level reassessed. Patient is alert, oriented x 3, equal unlabored respirations, skin warm/dry/pink. Vital Signs: 19:16 BP 153 / 89; Pulse 105; Resp 18; Temp 98.2; Pulse Ox 100% on R/A; Weight 68.04 kg; mb9 Height 5 ft. 4 in. ; 21:20 BP 134 / 84; Pulse 88; Resp 16; Pulse Ox 100% on R/A; mb9 19:16 Body Mass Index 25.75 (68.04 kg, 162.56 cm) mb9 ED Course: 19:12 Patient arrived in ED. gm2 19:18 Triage completed. mb9 19:18 Babatunde Krause PA is PHCP. cp 19:18 Cruz Raygoza MD is Attending Physician. cp 19:18 Arm band placed on. mb9 19:25 Urinalysis w/ reflexes Sent. mb9 21:21 Adult w/ patient. mb9 21:21 No provider procedures requiring assistance completed. Patient did not have IV access mb9 during this emergency room visit. Administered Medications: No medications were administered Medication: 21:21 VIS not applicable for this client. mb9 Outcome: 20:23 Discharge ordered by . cp 21:21 Discharged to home ambulatory, mb9 21:21 Condition: stable 21:21 Discharge instructions given to patient, Instructed on discharge instructions, follow up and referral plans. Demonstrated understanding of instructions, follow-up care, 21:22 Patient left the ED. mb9 Signatures: Babatunde Krause PA PA cp Breneman, Mary Beth, RN RN mb9 Susan Frances gm2 Corrections: (The following items were deleted from the chart) 19:20 19:18 General: Appears in no apparent distress. Behavior is calm, cooperative, mb9 appropriate for age, mb9 :25 19:16 Chief complaint: Patient states: "I just found out I'm and feel like I mb9 have a UTI. I have a little bit of burning with urination. My nose is congested as well." mb9 : 19:16 Acuity: CINDY 4 mb9 mb9
--- NOTE | 2023-06-25 20:24 | EDPHYS ---
Physician Documentation [facility] Name: Mandy Patel Age: 22 yrs Sex: Female : 2000 Arrival Date: 06/25/2023 Time: 19:03 Bed IW1 Private MD: ED Physician Cruz Raygoza HPI: 06/25 19:30 This 22 yrs old Female presents to ER via Ambulatory with complaints of Congestion, cp Pain With Urination, 6 WEEKS PREG. 19:30 The patient presents to the emergency department with dysuria, lower abdomen cramping cp and nasal congestion. 19:30 The estimated gestational age is 6 weeks. course: care: private OB cp physician, Leakage of Fluid: none appreciated, Ultrasound: the patient has not had an ultrasound. Associated signs and symptoms: Pertinent negatives: abdominal pain, fever, vaginal bleeding, vomiting, hematuria. Historical: - Allergies: 19:18 PENICILLINS; mb9 - Home Meds: 19:18 None [Active]; mb9 - PMHx: 19:18 UTI; mb9 - PSHx: 19:18 None; mb9 - Immunization history:: Adult Immunizations up to date. - Social history:: Smoking status: Patient denies any tobacco usage or history of. ROS: 19:33 Constitutional: Negative for body aches, chills, fever, poor PO intake, cp 19:33 Eyes: Negative for injury, pain, redness, and discharge, cp 19:33 ENT: Positive for nasal congestion, Negative for drainage from ear(s), ear pain, sore throat, difficulty swallowing, difficulty handling secretions, 19:33 Respiratory: Negative for cough, shortness of breath, wheezing, 19:33 Abdomen/GI: Positive for lower abdomen cramps, Negative for abdominal pain, vomiting, diarrhea, constipation, 19:33 : Positive for burning with urination, Negative for hematuria, vaginal bleeding, vaginal discharge, 19:33 Neuro: Negative for headache, 19:33 All other systems are negative, Exam: 19:35 Constitutional: The patient appears in no acute distress, alert, awake, comfortable, cp non-toxic, well developed, well nourished, 19:35 Head/Face: Normocephalic, atraumatic. cp 19:35 Eyes: Periorbital structures: appear normal, Conjunctiva: normal, no exudate, no injection, Lids and lashes: appear normal, bilaterally, 19:35 ENT: External ear(s): are unremarkable, Ear canal(s): are normal, clear, TM's: dullness, bilaterally, Nose: External nose: no obvious acute abnormality, nasal drainage, is not appreciated, Mouth: Lips: moist, Oral mucosa: pink and intact, moist, Posterior pharynx: is normal, airway is patent, no erythema, no exudate, 19:35 Chest/axilla: Inspection: normal, 19:35 Cardiovascular: Rate: tachycardic, Rhythm: regular, 19:35 Respiratory: the patient does not display signs of respiratory distress, Respirations: normal, no use of accessory muscles, no retractions, labored breathing, is not present, Breath sounds: are clear throughout, no decreased breath sounds, no stridor, no wheezing, 19:35 Abdomen/GI: Exam negative for discomfort, distension, guarding, Inspection: abdomen appears normal, 19:35 Back: CVA tenderness, is absent, Vital Signs: 19:16 BP 153 / 89; Pulse 105; Resp 18; Temp 98.2; Pulse Ox 100% on R/A; Weight 68.04 kg; mb9 Height 5 ft. 4 in. ; 21:20 BP 134 / 84; Pulse 88; Resp 16; Pulse Ox 100% on R/A; mb9 19:16 Body Mass Index 25.75 (68.04 kg, 162.56 cm) 9 MDM: 19:18 Patient medically screened. 20:00 Differential diagnosis: STD, ectopic , uti, pyelonephritis. 20:22 Data reviewed: vital signs, nurses notes, lab test result(s), and as a result, I will cp discharge patient. 20:22 Counseling: I had a detailed discussion with the patient and/or guardian regarding the cp historical points, exam findings, and any diagnostic results supporting the discharge/admit diagnosis, the need for outpatient follow up, an OB/Gyne specialist, to return to the emergency department if symptoms worsen or persist or if there are any questions or concerns that arise at home. 06/25 19:21 Order name: Urinalysis w/ reflexes; Complete Time: 19:56 [facility] 06/25 19:56 Interpretation: Reviewed. 06/25 19:57 Order name: PREGU; Complete Time: 20:21 cp Administered Medications: No medications were administered Disposition: 06/26 20:46 Co-signature as Attending Physician, Cruz Raygoza MD I reviewed the patient's care rt provided by the Advanced Practice Provider and agree with the diagnosis and treatment plan. Disposition Summary: 06/25/23 20:23 Discharge Ordered Notes: Location: Home cp Problem: new cp Symptoms: have improved cp Condition: Stable cp Diagnosis - Nasal congestion cp - Other specified related conditions, first trimester cp Followup: cp - With: Private Physician - When: 1 week - Reason: Recheck today's complaints Discharge Instructions: - Discharge Summary Sheet cp - Abdominal Pain During cp - First Trimester of cp - Round Ligament Pain cp Forms: - Medication Reconciliation Form cp - Thank You Letter cp - Antibiotic Education cp - Prescription Opioid Use cp - Patient Portal Instructions cp - Leadership Thank You Letter cp Signatures: Dispatcher [employer] Babatunde Argueta PA PA cp Breneman, Mary Beth, RN RN mb9 Cruz Raygoza MD MD rt
[2023-06-25 21:56] VITALS: TEMP 98.2; O2SAT 100
[2023-06-25 21:58] VITALS: BP 134/84
== END 2023-06-25 21:22 | disposition home or self-care (01) ==
LOC: ER 19:03
DX: O99.511 Diseases of the respiratory system complicating pregnancy, first trimester (principal); R09.81 Nasal congestion; Z3A.01 Less than 8 weeks gestation of pregnancy; Z88.0 Allergy status to penicillin
CPT/HCPCS: 81001; 81025; 99283

== ENCOUNTER 2023-06-26 20:05 | Emergency (ER) | payer OTHER ==
--- OUTSIDE RECORDS SUMMARY | 2023-06-26 20:10 | XMS REPORT | Continuity of Care Document ---
:2000 Author Organization [facility] t Address [address] [place] [address] Care Team Providers Name Role Phone ALBERT [...] ID 2022-05-31 2022-05-31 Emergency ER RODOLFO MANCIA [facility] [id number] [place] 17:19:00 19:10:00 ALBERT [id number] [facility] 2022-05-31 2022-05-31 emergency [id number] 17:19:00 19:10:00 [id number] [id number] [id number] 2021-02-21 2021-02-21 Emergency ER , [facility] [id number] 19:04:00 22:21:00 [id number] [facility] Results This patient has no known results.
[2023-06-26 21:03] LABS: Absolute Lymphocytes (CBC) 3.1 K/uL (0.7-4.9); Hematocrit 35.5 % (36.0-45.0); Lymphocytes % 31.5 % (15.3-44.8); MCV 79.8 fL (80-100); MPV 7.5 fL (7.6-11.3); Platelets 317 thou/uL (152-406); RBC Red Blood Cell Count 4.44 M/uL (3.86-4.86)
[2023-06-26 21:05] LABS: Urine Bacteria <20 /HPF (<20); Urine Bilirubin NEGATIVE (Negative); Urine Blood 1+ (Negative); Urine Clarity Extremely Turbid (Clear); Urine Color Light-Yellow (Yellow); Urine Crystals Unidentified Few /HPF (None Seen); Urine Glucose NEGATIVE (Negative); Urine Mucus Slight /HPF (None Seen); Urine Protein NEGATIVE (Negative); Urine RBC <5 /HPF (None Seen); Urine Urobilinogen Normal (Normal); Urine WBC Clump Rare /HPF (None Seen)
--- NOTE | 2023-06-26 21:39 | RAD REPORT ---
EXAM DESCRIPTION: US - Transvaginal OB - 06/26/2023 9:16 pm CLINICAL HISTORY: ABD CRAMPING, COMPARISON: No comparisons TECHNIQUE: Sonographic grayscale and color flow images of a first-trimester were obtained through approach. FINDINGS: A single intrauterine is identified. Gestational sac measuring 11.8 millimeter, corresponding to gestational age of 6 weeks, 0 days. No appreciable pole or pulsations. Small yolk sac is visualized. Heterogeneous fluid collection anteroinferior to the gestational sac measuring 1.3 x 0.7 x 0.6 cm. Maternal ovaries are visualized, with a right ovarian complex cystic small lesion with angle fire vas cularity, may represent a corpus luteum. No free fluid. IMPRESSION: 1. Single intrauterine with no visualization of the pole or cardiac puls ations. 2. Calculated gestational age based on gestational sac size: 6 weeks, 0 days. 3. Heterogeneous fluid collection antro inferior to the gestational sac up to 1.3 cm in size, may rep resent a subchorionic hemorrhage. This worsens the prognosis of the . 4. Close clinical follow-up, and serial beta HCG follow-up recommended. A follow-up ultrasound may be helpful in 5-7 days to re-evaluate viability.
[2023-06-26 22:46] LABS: Potassium 3.4 mEq/L (3.5-5.1)
--- NOTE | 2023-06-26 22:59 | EDPHYS ---
Physician Documentation [facility] Name: Mandy Patel Age: 22 yrs Sex: Female : 2000 Arrival Date: 06/26/2023 Time: 20:05 Bed 20 Private MD: ED Physician Rick Rush HPI: 06/26 22:46 This 22 yrs old Female presents to ER via Ambulatory with complaints of Vaginal snw Bleeding, + Preg <12wks. 22:46 Onset: The symptoms/episode began/occurred suddenly, just prior to arrival. Associated snw signs and symptoms: The patient has no apparent associated signs or symptoms. Severity of symptoms: At their worst the symptoms were mild. The patient is sexually active, reportedly has a single partner. The patient has not experienced similar symptoms in the past. The patient has not recently seen a physician. 22:47 small amt dark red blood without clots to underwear this evening, denies pain. 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 - Social history:: Smoking status: Reported history of juuling and/or vaping. Patient/guardian denies using alcohol. ROS: 22:45 Constitutional: Negative for fever, chills, and weight loss, Eyes: Negative for injury, snw pain, redness, and discharge, ENT: Negative for injury, pain, and discharge, Neck: Negative for injury, pain, and swelling, Cardiovascular: Negative for chest pain, palpitations, and edema, Respiratory: Negative for shortness of breath, cough, wheezing, and pleuritic chest pain, Abdomen/GI: Negative for abdominal pain, nausea, vomiting, diarrhea, and constipation, Back: Negative for injury and pain, MS/Extremity: Negative for injury and deformity, Skin: Negative for injury, rash, and discoloration, Neuro: Negative for headache, weakness, numbness, tingling, and seizure, Psych: Negative for depression, anxiety, suicide ideation, homicidal ideation, and hallucinations, 22:45 : Positive for vaginal bleeding, 6wk IUP, Exam: 22:45 Constitutional: This is a well developed, well nourished patient who is awake, alert, snw and in no acute distress. Head/Face: Normocephalic, atraumatic. Eyes: Pupils equal round and reactive to light, extra-ocular motions intact. Lids and lashes normal. Conjunctiva and sclera are non-icteric and not injected. Cornea within normal limits. Periorbital areas with no swelling, redness, or edema. ENT: Nares patent. No nasal discharge, no septal abnormalities noted. Tympanic membranes are normal and external auditory canals are clear. Oropharynx with no redness, swelling, or masses, exudates, or evidence of obstruction, uvula midline. Mucous membranes moist. Neck: Trachea midline, no thyromegaly or masses palpated, and no cervical lymphadenopathy. Supple, full range of motion without nuchal rigidity, or vertebral point tenderness. No Meningismus. Chest/axilla: Normal chest wall appearance and motion. Nontender with no deformity. No lesions are appreciated. Cardiovascular: Regular rate and rhythm with a normal S1 and S2. No gallops, murmurs, or rubs. Normal PMI, no JVD. No pulse deficits. Respiratory: Lungs have equal breath sounds bilaterally, clear to auscultation and percussion. No rales, rhonchi or wheezes noted. No increased work of breathing, no retractions or nasal flaring. Abdomen/GI: Soft, non-tender, with normal bowel sounds. No distension or tympany. No guarding or rebound. No evidence of tenderness throughout. Back: No spinal tenderness. No costovertebral tenderness. Full range of motion. Skin: Warm, dry with normal turgor. Normal color with no rashes, no lesions, and no evidence of cellulitis. MS/ Extremity: Pulses equal, no cyanosis. Neurovascular intact. Full, normal range of motion. Neuro: Awake and alert, GCS 15, oriented to person, place, time, and situation. Cranial nerves II-XII grossly intact. Motor strength 5/5 in all extremities. Sensory grossly intact. Cerebellar exam normal. Normal gait. Psych: Awake, alert, with orientation to person, place and time. Behavior, mood, and affect are within normal limits. Vital Signs: 20:22 BP 145 / 92; Pulse 81; Resp 18; Temp 98.6(O); Pulse Ox 100% on R/A; Weight 70.31 kg; eh3 Height 5 ft. 4 in. ; Pain 6/10; 21:29 BP 134 / 87; Pulse 83; Resp 15; Pulse Ox 100% on R/A; nw1 20:22 Body Mass Index 26.61 (70.31 kg, 162.56 cm) 3 20:22 Pain Scale: Adult eh3 MDM: 20:17 Patient medically screened. snw 22:59 Differential diagnosis: threatened Ab, inevitable Ab, postcoital bleeding. Data snw reviewed: vital signs, nurses notes, lab test result(s), radiologic studies. Counseling: I had a detailed discussion with the patient and/or guardian regarding the historical points, exam findings, and any diagnostic results supporting the discharge/admit diagnosis, lab results, radiology results, the need for outpatient follow up, for definitive care, to return to the emergency department if symptoms worsen or persist or if there are any questions or concerns that arise at home. Response to treatment: the patient's symptoms have mildly improved after treatment. Special discussion: Based on the history and exam findings, there is no indication for further emergent testing or inpatient evaluation. I discussed with the patient/guardian the need to see the OB Gyne specialist for further evaluation of the symptoms. 23:00 ED course: discussed need to take vitamins with source of Vit C. snw 06/26 20:17 Order name: Abo/rh Typing; Complete Time: 22:00 snw 06/26 20:17 Order name: Basic Metabolic Panel; Complete Time: 22:58 snw 06/26 20:17 Order name: CBC with Diff; Complete Time: 21:37 snw 06/26 20:17 Order name: Quantitative Hcg; Complete Time: 22:58 snw 06/26 20:17 Order name: Urinalysis w/ reflexes; Complete Time: 21:06 snw 06/26 20:17 Order name: US Transvaginal Ob; Complete Time: 21:48 snw 06/26 20:17 Order name: IV Saline Lock; Complete Time: 20:39 snw 06/26 20:17 Order name: Labs collected and sent; Complete Time: 20:39 snw 06/26 20:17 Order name: NPO; Complete Time: 20:39 snw Administered Medications: No medications were administered Point of Care Testing: Urine : 23:08 hCG Reading: Positive; Control Reading: Positive; nw1 Disposition Summary: 06/26/23 22:58 Discharge Ordered Notes: Location: Home snw Condition: Stable snw Diagnosis - Threatened snw Followup: snw - With: Emergency Department - When: As needed - Reason: Worsening of condition Followup: snw - With: Private Physician - When: 2 - 3 days - Reason: Recheck today's complaints, Continuance of care, Re-evaluation by your physician Discharge Instructions: - Discharge Summary Sheet snw - Care snw - Threatened Miscarriage snw - Vaginal Bleeding During , First Trimester snw - First Trimester of snw Forms: - Medication Reconciliation Form snw - Thank You Letter snw - Antibiotic Education snw - Prescription Opioid Use snw - Patient Portal Instructions snw - Leadership Thank You Letter snw Addendum: 06/30/2023 20:06 Co-signature as Attending Physician, Rick Rush MD I agree with the assessment s p4 and plan of care. I reviewed the patient's care provided by the Advanced Practice Provider and agree with the diagnosis and treatment plan. Signatures: Dispatcher [employer] Jackeline Perez, RUBBER OFF-C RUBBER OFF-Csnw Elma Locke RN RN eh3 Rick Rush MD MD sp4
--- NOTE | 2023-06-26 22:59 | ER ---
Nurse's Notes [facility] Name: Mandy Patel Age: 22 yrs Sex: Female : 2000 Arrival Date: 06/26/2023 Time: 20:05 Bed 20 Private MD: Diagnosis: Threatened Presentation: 06/26 20:22 Chief complaint:. Chief complaint: Patient states: moderate amount of rust colored eh3 vaginal bleeding at 1930 today, no visible clots, 6 weeks , and abdominal cramping pain scale 6/10. Coronavirus screen: Vaccine status: Patient reports receiving the 2nd dose of the covid vaccine. Ebola Screen: No symptoms or risks identified at this time. Initial Sepsis Screen: Does the patient meet any 2 criteria? No. Patient's initial sepsis screen is negative. Does the patient have a suspected source of infection? No. Patient's initial sepsis screen is negative. Risk Assessment: Do you want to hurt yourself or someone else? Patient reports no desire to harm self or others. Onset of symptoms was June 26, 2023. 20:22 Method Of Arrival: Ambulatory 3 20:22 Acuity: CINDY 3 eh3 Triage Assessment: 20:26 General: Appears in no apparent distress. uncomfortable, Behavior is cooperative, eh3 appropriate for age, anxious. Pain: Complains of pain in abdomen Pain currently is 6 out of 10 on a pain scale. Quality of pain is described as crampy. Neuro: Level of Consciousness is awake, alert, obeys commands, Oriented to person, place, time, situation. Cardiovascular: Capillary refill < 3 seconds Patient's skin is warm and dry. Respiratory: Airway is patent Respiratory effort is even, unlabored, Respiratory pattern is regular, symmetrical. : Reports vaginal bleeding that is brown, moderate flow. 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 - Social history:: Smoking status: Reported history of juuling and/or vaping. Patient/guardian denies using alcohol. Screenin:48 [facility] ED Fall Risk Assessment (Adult) History of falling in the last 3 months, kl including since admission No falls in past 3 months (0 pts) Score/Fall Risk Level 0 - 2 = Low Risk Oriented to surroundings, Maintained a safe environment, Educated pt \T\ family on fall prevention, incl call for assistance when getting out of bed, Assessed \T\ reinforced patient's understanding of fall precautions, Provided non-skid footwear, Hourly rounding (assess needs \T\ fall precautionary measures) done, Used ambulatory aids as needed (educated on \T\ assisted with), Used gait belt as appropriate. Abuse screen: Denies threats or abuse. Denies injuries from another. Nutritional screening: No deficits noted. Tuberculosis screening: No symptoms or risk factors identified. Assessment: 20:44 Reassessment: Pt to room at this time. Report received from GINNY Linton of vaginal bleeding nw1 in first in first trimester. Introductions made and patient to put on gown. Will return to assess patient. IV noted in left AC prior to being placed in room. 20:54 Reassessment: Pt taken to US via wheelchair. nw1 21:29 Obstetrical Assessment: General assessment: awake and alert, respirations even and nw1 unlabored, Patient reports abdominal cramping, spotting in panties that started today. . Cardiovascular: No deficits noted. Respiratory: No deficits noted. GI: No deficits noted. Derm: No deficits noted. Musculoskeletal: No deficits noted. 22:02 Reassessment: No changes from previously documented assessment. Patient and/or family nw1 updated on plan of care and expected duration. Pain level reassessed. Pt noted in bed with family at bedside. 0 s/s of acute distress/discomfort noted. Pt denies pain at this time. Call light in reach. Will continue to monitor. Vital Signs: 20:22 BP 145 / 92; Pulse 81; Resp 18; Temp 98.6(O); Pulse Ox 100% on R/A; Weight 70.31 kg; eh3 Height 5 ft. 4 in. ; Pain 6/10; 21:29 BP 134 / 87; Pulse 83; Resp 15; Pulse Ox 100% on R/A; nw1 20:22 Body Mass Index 26.61 (70.31 kg, 162.56 cm) 3 20:22 Pain Scale: Adult [facility] Vitals: 23:07 Heart Tones n/a. nw1 ED Course: 20:14 Patient arrived in ED. gm2 20:14 Jackeline Bolden FNP-C [facility]. snw 20:14 Rick Rush MD is Attending Physician. snw 20:26 Triage completed. eh3 20:26 Arm band placed on. eh3 20:39 Inserted saline lock: 20 gauge in left antecubital area, using aseptic technique. Blood kl collected. 20:48 Patient has correct armband on for positive identification. Client placed on continuous kl cardiac and pulse oximetry monitoring. NIBP monitoring applied. 20:48 No provider procedures requiring assistance completed. kl 20:51 Kia Winslow, RN is Primary Nurse. nw1 21:18 US Transvaginal Ob In Process Unspecified. EDMS 21:24 Abo/rh Typing Sent. nw1 21:24 Basic Metabolic Panel Sent. nw1 21:24 Quantitative Hcg Sent. nw1 23:07 Provided Education on: POC. nw1 23:07 IV discontinued, intact, bleeding controlled, No redness/swelling at site. Pressure nw1 dressing applied. Administered Medications: No medications were administered Medication: 20:48 VIS not applicable for this client. Point of Care Testing: Urine : 23:08 hCG Reading: Positive; Control Reading: Positive; nw1 Outcome: 22:58 Discharge ordered by . snw 23:06 Discharged to home ambulatory, with family, nw1 23:06 Condition: stable 23:06 Discharge instructions given to patient, Instructed on discharge instructions, follow up and referral plans. Demonstrated understanding of instructions, follow-up care, 23:08 Patient left the ED. nw1 Signatures: Dispatcher [employer] EDOH Ivon Esquivel RN RN kl Waters, Shelly, FNP-C JAVA SWING DEVELOPER-Csnw Elma Locke RN RN Susan Pacheco 2 Kia Winslow RN RN nw1 Corrections: (The following items were deleted from the chart) 20:54 20:44 Reassessment: Pt to room at this time. Report received from GINNY Huitron of vaginal nw1 bleeding in first in first trimester. Introductions made and patient to put on gown. Will return to assess patient. IV noted in left AC prior to being placed in room. nw1
[2023-06-26 23:41] VITALS: TEMP 98.6; O2SAT 100
[2023-06-26 23:46] VITALS: BP 134/87
== END 2023-06-26 23:08 | disposition home or self-care (01) ==
LOC: ER 20:05
DX: O20.0 Threatened abortion (principal); Z3A.01 Less than 8 weeks gestation of pregnancy
CPT/HCPCS: 36415; 76817; 80048; 81001; 84702; 85025; 86900; 86901; 99284

== ENCOUNTER 2023-07-02 21:13 | Emergency (ER) | payer OTHER ==
--- OUTSIDE RECORDS SUMMARY | 2023-07-02 21:16 | XMS REPORT | Continuity of Care Document ---
:2000 Author Organization [facility] t Address [address] [facility] [address] [place] [address] Care Team Providers Name Role Phone ALBERT [...] 2022-05-31 Emergency ER RODOLFO MANCIA [facility] [id number] [place] 17:19:00 19:10:00 ALBERT [id number] [facility] 2022-05-31 2022-05-31 emergency [id number] 17:19:00 19:10:00 [id number] 2021-02-21 2021-02-21 Emergency ER , [facility] [id number] [place] 19:04:00 22:21:00 [id number] [facility] Results This patient has no known results.
--- NOTE | 2023-07-02 22:23 | RAD REPORT ---
EXAM DESCRIPTION: US - Transvaginal OB - 07/02/2023 10:00 pm CLINICAL HISTORY: ABD CRAMPING, COMPARISON: <Comparisons> FINDINGS: A single gestational sac is seen within the uterus. The shape of the sac is within normal limits for gestational age. Within the sac is a single pole with crown-rump length of 5 mm, cor relating to estimated gestational age of 6 weeks and 1 day. Estimated date of delivery is 02/24/2024. 14 mm subchorionic bleed is present inferiorly. Heart rate is 115 BPM. The placenta is not yet developed due to early gestational age. The maternal adnexa and ovaries are within normal limits. Normal Doppler blood flow was demonstrated to both ovaries. IMPRESSION: Single live early intrauterine gestation with estimated gestational age of 6 weeks and 1 day, NEFTALI 02/24/2024. 14 mm inferior subchorionic bleed.
[2023-07-02 23:12] LABS: Hematocrit 37.4 % (36.0-45.0); Lymphocytes % 23.9 % (15.3-44.8); MCV 80.8 fL (80-100); MPV 7.8 fL (7.6-11.3); Platelets 347 thou/uL (152-406); RBC Red Blood Cell Count 4.63 M/uL (3.86-4.86)
[2023-07-02 23:43] LABS: Potassium 3.3 mEq/L (3.5-5.1)
[2023-07-02 23:47] LABS: Urine Bacteria <20 /HPF (<20); Urine Bilirubin NEGATIVE (Negative); Urine Blood 2+ (Negative); Urine Clarity Extremely Turbid (Clear); Urine Color Light-Yellow (Yellow); Urine Glucose NEGATIVE (Negative); Urine Mucus Slight /HPF (None Seen); Urine Protein NEGATIVE (Negative); Urine RBC <5 /HPF (None Seen); Urine Urobilinogen Normal (Normal); Urine pH 6.5 (5.0-7.0)
--- NOTE | 2023-07-02 23:50 | ER ---
Nurse's Notes [facility] Name: Mandy Patel Age: 22 yrs Sex: Female : 2000 Arrival Date: 07/02/2023 Time: 21:13 Bed 15 Private MD: Diagnosis: Threatened Presentation: 07/02 21:28 Chief complaint: Patient states: abd pain and cramping on the lower area, with vaginal rv discharge, brown clots. Coronavirus screen: At this time, the client does not indicate any symptoms associated with coronavirus-19. Ebola Screen: No symptoms or risks identified at this time. Initial Sepsis Screen: Does the patient meet any 2 criteria? No. Patient's initial sepsis screen is negative. Does the patient have a suspected source of infection? No. Patient's initial sepsis screen is negative. Risk Assessment: Do you want to hurt yourself or someone else? Patient reports no desire to harm self or others. Onset of symptoms was July 02, 2023. 21:28 Method Of Arrival: Ambulatory rv 21:28 Acuity: CINDY 3 rv Triage Assessment: 21:29 General: Appears uncomfortable, Behavior is calm, cooperative. Pain: Complains of pain rv in abdomen. Neuro: Level of Consciousness is awake, alert, obeys commands, Oriented to person, place, time, situation. Cardiovascular: Capillary refill < 3 seconds Patient's skin is warm and dry. Respiratory: Airway is patent Respiratory effort is even, unlabored. GI: No signs and/or symptoms were reported involving the gastrointestinal system. : No signs and/or symptoms were reported regarding the genitourinary system. Derm: Skin is intact. Historical: - Allergies: 21:29 PENICILLINS; rv - PMHx: 21:29 UTI; rv - PSHx: 21:29 None; rv - Immunization history:: Adult Immunizations up to date. - Social history:: Smoking status: Patient denies any tobacco usage or history of. Screenin:30 [facility] ED Fall Risk Assessment (Adult) History of falling in the last 3 months, rv including since admission No falls in past 3 months (0 pts) Score/Fall Risk Level 0 - 2 = Low Risk Oriented to surroundings, Maintained a safe environment, Educated pt \T\ family on fall prevention, incl call for assistance when getting out of bed. Abuse screen: Denies threats or abuse. Denies injuries from another. Nutritional screening: No deficits noted. Tuberculosis screening: No symptoms or risk factors identified. Assessment: 23:00 General: Appears comfortable, Behavior is calm, cooperative. Pain: Denies pain. Neuro: ha1 Level of Consciousness is awake, alert, obeys commands, Oriented to person, place, time, situation. Cardiovascular: Patient's skin is warm and dry. Respiratory: Airway is patent Respiratory effort is even, unlabored, Respiratory pattern is regular, symmetrical. : Reports vaginal bleeding that is. Derm: Skin is pink, warm \T\ dry. Musculoskeletal: Circulation, motion, and sensation intact. Range of motion: intact in all extremities. Vital Signs: 21:28 BP 132 / 86; Pulse 89; Resp 17; Temp 98; Pulse Ox 100% ; Weight 72.57 kg; Height 5 ft. rv 4 in. ; 23:15 BP 128 / 82; Pulse 82; Resp 17 S; Pulse Ox 100% on R/A; ha1 21:28 Body Mass Index 27.46 (72.57 kg, 162.56 cm) rv ED Course: 21:17 Patient arrived in ED. jj6 21:17 Caitie Boyle [facility]-C [facility]. kb 21:18 Rick Rush MD is Attending Physician. kb 21:29 Triage completed. rv 21:29 Arm band placed on right wrist. rv 22:00 Patient has correct armband on for positive identification. Placed in gown. Bed in low ha1 position. Call light in reach. Side rails up X 1. Adult w/ patient. 22:02 Transvaginal Ob In Process Unspecified. EDMS 07/03 00:03 No provider procedures requiring assistance completed. IV discontinued, intact, ha1 bleeding controlled, No redness/swelling at site. Pressure dressing applied. 00:05 Provided Education on: need to follow up with OB . ha1 Administered Medications: No medications were administered Medication: 07/02 21:30 VIS not applicable for this client. rv Outcome: 23:50 Discharge ordered by . kb 07/03 00:04 Discharged to home ambulatory, with family, ha1 Condition: stable Discharge instructions given to patient, Instructed on discharge instructions, follow up and referral plans. Demonstrated understanding of instructions, follow-up care, 00:06 Patient left the ED. ha1 Signatures: Dispatcher [employer] EDCaitie Serna, MAX-C INTERNAL COMBUSTION ENGINEER-Leon Sellers, RN Sylvia Nguyen Heidy RN RN ha1
--- NOTE | 2023-07-02 23:50 | EDPHYS ---
Physician Documentation [facility] Name: Mandy Patel Age: 22 yrs Sex: Female : 2000 Arrival Date: 07/02/2023 Time: 21:13 Bed 15 Private MD: ED Physician Rick Rush HPI: 07/02 23:49 This 22 yrs old Female presents to ER via Ambulatory with complaints of EST 7WKS kb GESTATION, Pelvic Pain, Vaginal Discharge. 23:49 Patient is a 22-year-old female A0 who presents for lower abdominal cramping and kb a brown discharge that started today.. Historical: - Allergies: 21:29 PENICILLINS; rv - PMHx: 21:29 UTI; rv - PSHx: 21:29 None; rv - Immunization history:: Adult Immunizations up to date. - Social history:: Smoking status: Patient denies any tobacco usage or history of. ROS: 23:47 Constitutional: Negative for fever, chills, and weight loss, kb 23:47 Abdomen/GI: Positive for abdominal cramps, 23:47 : Positive for vaginal bleeding, 23:47 All other systems are negative, Exam: 23:48 Constitutional: This is a well developed, well nourished patient who is awake, alert, kb and in no acute distress. Head/Face: Normocephalic, atraumatic. ENT: Moist Mucous membranes Cardiovascular: Regular rate Respiratory: Respirations even and unlabored. No increased work of breathing. Talking in full sentences Abdomen/GI: Soft, non-tender. No distention Skin: Warm, dry with normal turgor. Normal color. MS/ Extremity: Pulses equal, no cyanosis. Neurovascular intact. Full, normal range of motion. Neuro: Awake and alert, GCS 15, oriented to person, place, time, and situation. Moves all extremities. Normal gait. Vital Signs: 21:28 BP 132 / 86; Pulse 89; Resp 17; Temp 98; Pulse Ox 100% ; Weight 72.57 kg; Height 5 ft. rv 4 in. ; 23:15 BP 128 / 82; Pulse 82; Resp 17 S; Pulse Ox 100% on R/A; ha1 21:28 Body Mass Index 27.46 (72.57 kg, 162.56 cm) rv MDM: 21:18 Patient medically screened. kb 23:48 Differential diagnosis: Threatened , UTI, subchorionic hematoma. Data reviewed: kb vital signs, nurses notes. Counseling: I had a detailed discussion with the patient and/or guardian regarding the historical points, exam findings, and any diagnostic results supporting the discharge/admit diagnosis, lab results, radiology results, the need for outpatient follow up, an OB/Gyne specialist, to return to the emergency department if symptoms worsen or persist or if there are any questions or concerns that arise at home. ED course: Labs from previous ER visit reviewed. Patient is O+. 07/02 21:32 Order name: Basic Metabolic Panel; Complete Time: 23:44 kb 07/02 21:32 Order name: CBC with Diff; Complete Time: 23:22 kb 07/02 21:32 Order name: Test, Urine; Complete Time: 23:46 kb 07/02 21:32 Order name: Quantitative Hcg; Complete Time: 23:44 kb 07/02 21:32 Order name: Urinalysis w/ reflexes; Complete Time: 23:49 kb 07/02 21:32 Order name: US Transvaginal Ob; Complete Time: 22:24 kb 07/02 21:32 Order name: IV Saline Lock; Complete Time: 22:17 kb 07/02 21:32 Order name: Labs collected and sent; Complete Time: 22:17 kb 07/02 21:32 Order name: NPO; Complete Time: 22:17 kb Administered Medications: No medications were administered Disposition: 07/03 03:14 Co-signature as Attending Physician, Rick Rush MD I agree with the assessment sp4 and plan of care. I reviewed the patient's care provided by Advanced Practice Provider \T\ agree w/ the diagnosis \T\ care plan. I personally saw the pt \T\ performed a substantive portion of the visit, incldng all aspects of the (History/Exam/Medical Decision Making). Disposition Summary: 07/02/23 23:50 Discharge Ordered Notes: Location: Home kb Condition: Stable kb Diagnosis - Threatened kb Followup: kb - With: Emergency Department - When: As needed - Reason: Worsening of condition Followup: kb - With: Private Physician - When: 2 - 3 days - Reason: Recheck today's complaints, Continuance of care, Re-evaluation by your physician Discharge Instructions: - Discharge Summary Sheet kb - Vaginal Bleeding During , First Trimester kb - Subchorionic Hematoma kb - Threatened Miscarriage, [id number] kb Forms: - Medication Reconciliation Form kb - Thank You Letter kb - Antibiotic Education kb - Prescription Opioid Use kb - Patient Portal Instructions kb - Leadership Thank You Letter kb Signatures: Dispatcher [employer] Caitie Tenorio, Leon Murphy, RN Rick Roe MD MD sp4
[2023-07-03 00:19] VITALS: TEMP 98; O2SAT 100
[2023-07-03 00:20] VITALS: BP 128/82
== END 2023-07-03 00:06 | disposition home or self-care (01) ==
LOC: ER 21:13
DX: O20.0 Threatened abortion (principal); Z88.0 Allergy status to penicillin
CPT/HCPCS: 36415; 76817; 80048; 81001; 81025; 84702; 85025; 99283